=== PATIENT | female | born 1955 | race Caucasian/White ===

== ENCOUNTER 2018-01-20 10:58 | Outpatient (CLI) | payer BC, OTHER | END 2018-01-20 10:59 | disposition home or self-care (01) | LOC: BICMAMMO 10:58 | PROVIDERS: ATTEND Obstetrics & Gynecology | DX: Z12.31 Encounter for screening mammogram for malignant neoplasm of breast (principal); Z80.3 Family history of malignant neoplasm of breast | CPT/HCPCS: 77063; 77067 ==

== ENCOUNTER 2019-01-25 10:38 | Outpatient (CLI) | payer MEDICARE, BC ==
--- NOTE | 2019-01-25 12:00 | MMO ---
Bilateral MAMMO Bilat Screen [facility]DI. CLINICAL HISTORY: Patient is 63 years old and is seen for screening. The patient has the following family history of breast cancer: mother, at age 78. The patient has no personal history of cancer. VIEWS: The views performed were: bilateral craniocaudal and bilateral mediolateral oblique. FILMS COMPARED: The present examination has been compared to prior imaging studies performed at [facility] on 01/27/2007, 01/30/2008, 01/30/2009, 02/04/2010, 02/05/2011, 02/17/2012, 02/21/2013, 03/20/2014, 01/03/2015, 01/14/2016, 01/18/2017 and 01/20/2018, and at [facility] on 12/10/2003, 12/08/2004 and 01/12/2006. This study has been interpreted with the assistance of computer-aided detection. MAMMOGRAM FINDINGS: There are scattered fibroglandular densities. There are benign appearing calcifications seen in both breasts. There are no suspicious masses, suspicious calcifications, or new areas of architectural distortion. IMPRESSION: THERE IS NO MAMMOGRAPHIC EVIDENCE OF MALIGNANCY. A ROUTINE FOLLOW-UP MAMMOGRAM IN 1 YEAR IS RECOMMENDED. ACR BI-RADS Category 2 - Benign finding MAMMOGRAPHY NOTE: 1. A negative mammogram report should not delay a biopsy if a dominant of clinically suspicious mass is present. 2. Approximately 10% to 15% of breast cancers are not detected by mammography. 3. Adenosis and dense breasts may obscure an underlying neoplasm.
== END 2019-01-25 10:39 | disposition home or self-care (01) ==
LOC: SCSMAMMO 10:38
PROVIDERS: ATTEND Obstetrics & Gynecology
DX: Z12.31 Encounter for screening mammogram for malignant neoplasm of breast (principal); Z80.3 Family history of malignant neoplasm of breast
CPT/HCPCS: 77067

== ENCOUNTER 2023-09-16 12:10 | Outpatient (CLI) | payer MEDICARE, BC | END 2023-09-16 12:11 | disposition home or self-care (01) | LOC: BICULT 12:10 | PROVIDERS: ATTEND Internal Medicine | DX: D17.71 Benign lipomatous neoplasm of kidney (principal) | CPT/HCPCS: 76770 ==

== ENCOUNTER 2023-11-12 14:03 | Outpatient (CLI) | payer MEDICARE, BC | END 2023-11-12 14:04 | disposition home or self-care (01) | LOC: BICMRI 14:03 | PROVIDERS: ATTEND Orthopaedic Surgery | DX: M24.9 Joint derangement, unspecified (principal); M75.122 Complete rotator cuff tear or rupture of left shoulder, not specified as traumatic; S46.812A Strain of other muscles, fascia and tendons at shoulder and upper arm level, left arm, initial encounter; S43.432A Superior glenoid labrum lesion of left shoulder, initial encounter; S43.492A Other sprain of left shoulder joint, initial encounter; M85.612 Other cyst of bone, left shoulder; M67.814 Other specified disorders of tendon, left shoulder ==

== ENCOUNTER 2024-03-21 10:54 | Outpatient (CLI) | payer MEDICARE, BC ==
[2024-03-21 11:48] LABS: #Basophils 0.05 10x3/uL (0.0-0.2); #Monocytes 0.72 10x3/uL (0.0-1.1); %Basophils 0.6 % (0.0-2.0); %Eosinophils 1.3 % (0.0-6.0); %Lymphocytes 32.5 % (18.0-47.0); %Monocytes 9.2 % (0.0-10.0); %Neutrophils 56.1 % (40.0-75.0); Mean Corpuscular HGB CONC 34.2 g/dL (32.0-36.0); Mean Corpuscular Hemoglobin 28.1 pg (27.0-33.0); Mean Corpuscular Volume 82.1 fL (81.6-98.3); Mean Platelet Volume 10.3 fL (7.4-10.4); Platelet Count 288 10x3/uL (150-450); RBC Distribution Width 13.2 % (11.5-14.5); Red Blood Cell (RBC) Count 4.63 10x6/uL (3.90-5.03); White Blood Cell (WBC) Count 7.8 10x3/uL (3.5-10.5)
[2024-03-21 12:15] LABS: Anion Gap 13 mmol/L (10-20); BUN (Urea Nitrogen) 12 mg/dL (9.8-20.1); Calc. Creatinine Clearance 0 mL/min (70-130); Calcium 9.6 mg/dL (7.8-10.44); Carbon Dioxide 28 mmol/L (23-31); Chloride 102 mmol/L (98-107); Estimated GFR 84; Glucose 92 mg/dL (80-115); Potassium 4.9 mmol/L (3.5-5.1); Sodium 138 mmol/L (136-145)
== END 2024-03-21 10:55 | disposition home or self-care (01) ==
LOC: LABBT 10:54
PROVIDERS: ATTEND Orthopaedic Surgery
DX: Z01.818 Encounter for other preprocedural examination (principal); M24.812 Other specific joint derangements of left shoulder, not elsewhere classified; M25.511 Pain in right shoulder
CPT/HCPCS: 80048; 85025; 93005; 93010

== ENCOUNTER 2024-03-24 06:51 | Day surgery (SDC) | payer MEDICARE, BC ==
[2024-03-21 11:43] VITALS: BMI 22.1
[2024-03-24] MEDS ORDERED: fentaNYL 50 mcg/mL 1 mL Vial ONE ×2 (08:04→09:31)
[2024-03-24] MEDS ORDERED: Ropivacaine 0.2% HCl/PF 20 ML ONE (08:04)
[2024-03-24] MEDS ORDERED: Ropivacaine 0.5% HCl/PF (150 MG/30 ML VIAL) ONE (08:04)
[2024-03-24] MEDS ORDERED: Midazolam HCl 2 mg/2 ml Vial ONE (08:04)
[2024-03-24] MEDS ORDERED: Zolpidem Tartrate 5 MG TAB PO PRN (09:00)
[2024-03-24] MEDS ORDERED: Ropivacaine 0.2% 550 ML 550 ML NERVE BLCK SCH (09:00)
[2024-03-24] MEDS ORDERED: traMADol HCl 50 MG TAB PO PRN ×2 (09:00)
[2024-03-24] MEDS ORDERED: HYDROcodone/Acetaminophen 10/325 mg Tablet PO PRN ×2 (09:00)
[2024-03-24] MEDS ORDERED: Promethazine HCl 25 MG/ML VIAL IM PRN (09:00)
[2024-03-24] MEDS ORDERED: Ondansetron PF 4 MG/2 ML Vial IVP PRN (09:00)
[2024-03-24] MEDS ORDERED: EPINEPHrine 1 MG/ML VIAL ONE (09:28)
[2024-03-24] MEDS ORDERED: Bupivacaine 0.25% HCL 30 ML VIAL ONE (09:28)
[2024-03-24] MEDS ORDERED: PROPOFOL 20 ML ONE (09:31)
[2024-03-24] MEDS ORDERED: Lidocaine 1% (PF) 30 ML VIAL ONE (09:42)
[2024-03-24] MEDS ORDERED: methylPREDNISolone Acetate 40 mg/ml Vial ONE (09:42)
[2024-03-24] MEDS ORDERED: CEFAZOLIN 2 GM VIAL ONE (09:50)
[2024-03-24] MEDS ORDERED: Sodium Chloride 0.9% 100 ML ONE (09:50)
[2024-03-24] MEDS ORDERED: Rocuronium Bromide 10 MG/ML (10ML VIAL) ONE (10:05)
[2024-03-24] MEDS ORDERED: PHENYLEPHRINE-NS 100 MCG/ML 10 ML SYRINGE ONE (10:05)
[2024-03-24] MEDS ORDERED: Glycopyrrolate 0.2 MG/ML 5 ML SYRINGE ONE (10:11)
[2024-03-24] MEDS ORDERED: Dexamethasone 20 MG/5 ML VIAL ONE (10:14)
[2024-03-24] MEDS ORDERED: ePHEDrine Sulfate 50 MG/10 ML VIAL ONE (10:41)
[2024-03-24] MEDS ORDERED: Ondansetron PF 4 MG/2 ML Vial ONE (11:29)
[2024-03-24] MEDS ORDERED: SUGAMMADEX SODIUM 200 MG/2 ML VIAL ONE (11:31)
== END 2024-03-24 15:00 | disposition home or self-care (01) ==
LOC: SDC 06:51
PROVIDERS: ATTEND Orthopaedic Surgery
PROC: 0LQ24ZZ Repair Left Shoulder Tendon, Percutaneous Endoscopic Approach (ICD-10-PCS; principal; 2024-03-24)
PROC: 0LS40ZZ Reposition Left Upper Arm Tendon, Open Approach (ICD-10-PCS; 2024-03-24)
PROC: 3E0U3GC Introduction of Other Therapeutic Substance into Joints, Percutaneous Approach (ICD-10-PCS; 2024-03-24)
PROC: 3E0T3BZ Introduction of Anesthetic Agent into Peripheral Nerves and Plexi, Percutaneous Approach (ICD-10-PCS; 2024-03-24)
DX: M75.102 Unspecified rotator cuff tear or rupture of left shoulder, not specified as traumatic (principal); S46.212A Strain of muscle, fascia and tendon of other parts of biceps, left arm, initial encounter; M24.812 Other specific joint derangements of left shoulder, not elsewhere classified; M25.511 Pain in right shoulder; M25.811 Other specified joint disorders, right shoulder; J45.909 Unspecified asthma, uncomplicated; F17.200 Nicotine dependence, unspecified, uncomplicated; Z88.1 Allergy status to other antibiotic agents; Z90.89 Acquired absence of other organs; X58.XXXA Exposure to other specified factors, initial encounter
CPT/HCPCS: 20610; 24340; 29827; A4306; C1713 ×2; J0171; J0665; J1030; J1100; J2001; J2250; J2405; J2704; J2795 ×3; J3010; J3490